=== PATIENT | male | born 1955 | race Two or more races ===

== ENCOUNTER → 2017-03-06 | Outpatient (CLI) | payer OTHER ==
--- NOTE | 2017-03-06 11:01 | RADRPT ---
PROCEDURE: XR Left Hip and pelvis. CLINICAL INDICATION: Left hip pain. Pelvic pain. TECHNIQUE: Two views. Frontal pelvis and lateral left hip. COMPARISON: No prior studies are available for comparison. FINDINGS: There is no fracture or dislocation. The soft tissues are normal. There are degenerative changes of both hips with joint space narrowing superiorly and osteophytes. There is no lytic or blastic lesion. The upper pelvis is not included on the image. IMPRESSION: 1. Moderate degenerative changes of both hips. 2. Upper pelvis not included on the images. 3. Otherwise unremarkable study. RPTAT: QQ .Seth Hansen MD, MD Date Time Electronically viewed and signed by .Seth Hansen MD, on 03/06/2017 11:00 .R/
--- NOTE | 2017-03-07 05:21 | HKNOTE ---
DATE OF SERVICE: 03/06/2017 REFERRING PHYSICIAN: Dr. Kelsie Ty. HEALTHCARE: [address], [address], [place], [place] [address]. MAIN COMPLAINT: Pain in the left hip. HISTORY OF MAIN COMPLAINT: The patient is a 61-year-old male who complains of pain in his left hip, which he first noticed somewhere around early 12/2016. There has not been any history of injury. He saw his corporate investigator, Dr. Iglesias who has referred him to me for further evaluation of his painful h ip. PRESENT COMPLAINTS: The pain in the left hip is localized to the groin and radiates down the anteri or aspect of the thigh to just above the knee. Pain is aggravated by walking, weightbearing and sta ir climbing and also by straining at stool. He does get rest pain and night pain. He has tried russel ing ibuprofen, but it has not helped. He has tried using heat, jacuzzi and massage which has "not r eally helped". He does get numbness and tingling in the left leg. He was complaining of "tiredness " in the lower back. On a level surface he can walk as far as he needs to. He does not use a walking aid. He does limp "when the pain bothers me". He can clip his toenails and put on his shoes and socks. SPORTING ACTIVITIES: He normally likes to jog but not lately. PAST ORTHOPEDIC HISTORY: Ligament surgeries on both knees. ALCOHOL INTAKE: "Socially once in a while". OTHER JOINT PROBLEMS: Occasional pain, but my shoulders. 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 PAST MEDICAL HISTORY: Negative. PAST SURGICAL HISTORY: Right knee ligament repair 1990, left knee ligament repair 2002. DRUG ALLERGIES: NONE. MEDICATIONS: None. FAMILY HISTORY: Mother has diabetes, otherwise noncontributory. SYSTEMS REVIEW: Excess urination "sometimes". Otherwise, entirely negative. HABITS: The patient does not smoke. He drinks" socially sometimes". GREEN BELT: Dr. Kelsie Ty. PHYSICAL EXAMINATION: GENERAL: The patient is a remarkably fit looking and youthful 61-year-old male. VITAL SIGNS: Height 5 foot 3, weight 174 pounds, blood pressure 140/90, temperature 97.8. GAIT: Patient's gait is normal. He walks without a walking aid. RIGHT HIP: Completely normal with full range of motion without pain. External rotation to 40 degre es. LEFT HIP: Marked limitation of motion with pain. Flexion is 95 degrees, external rotation is 35 de grees, internal rotation is 0 degrees, abduction 35 degrees, adduction 20 degrees. Marked pain in t he left groin at limits of motion. RIGHT KNEE: The right knee shows normal alignment. Active and passive extension is 0 degrees. Activ e and passive flexion is 135 degrees. The medial and lateral collateral ligaments and cruciate ligam ents are intact. Marilin test is negative. There is no effusion, tenderness, scarring, crepitus, or cysts. The patella tracks normally. There is no tenderness on the articular surface of the patella o r in the patellar groove. The Q angle is normal. LEFT KNEE: The left knee shows normal alignment. Active and passive extension is 0 degrees. Active and passive flexion is 135 degrees. The medial and lateral collateral ligaments and cruciate ligamen ts are intact. Marilin test is negative. There is no effusion, tenderness, scarring, crepitus, or cy sts. The patella tracks normally. There is no tenderness on the articular surface of the patella or in the patellar groove. The Q angle is normal. IMAGING: Plain x-rays of the pelvis and hips obtained today at the [facility] we re reviewed. These show that there is congenital dysplasia of both hips. There is mild narrowing o f the right hip joint space with secondary osteoarthritic changes. There is more significant narrow ing of the left hip joint space. The left hip shows marked narrowing with a small area of [id number] at the apex of the femoral hea d dome. The rest of the joint has slight narrowing without any significant arthritic changes. DIAGNOSES: 1. Congenital dysplasia of both hips. 2. 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 3. Minimal degenerative osteoarthritis of the right hip. MANAGEMENT: The patient is advised that congenital hips almost routinely become arthritic in middle life. His case is not unusual. He will definitely eventually need to have a left hip replacement. 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 He is very interested in hip replacement surgery and I spent considerable time with him discussing t he actual operation even though I am not recommending surgery at this time. I will treat him conservatively for as long as we possibly can before we start talking seriously abo ut a hip replacement operation. He should remain as active as he can and there is no problem with him continuing with his normal dut ies as described to me. Under sterile conditions, he was given injection of 2 mL of Kenalog and 2 mL of 2% lidocaine into th e left hip joint. His pain was completely relieved with 5 minutes of the injection. The patient can return for interval cortisone injection into his hip, but these injections can be no more frequently than every 3 months, preferably with a much longer interval between injections if p ossible. Dictated By: MONROE VARGHESE/LEESA Conf#: [id number] DID#: [id number]
== END | disposition home or self-care (01) ==
LOC: HKI 10:22
DX: M16.0 Bilateral primary osteoarthritis of hip (principal); Q65.89 Other specified congenital deformities of hip
CPT/HCPCS: 73502; Z7500; G0463

== ENCOUNTER → 2017-05-31 | Outpatient (CLI) | END | disposition home or self-care (01) ==